=== PATIENT | female | born 1960 | race Caucasian/White ===

== ENCOUNTER 2018-07-11 10:36 | Emergency (ER) | payer BC, SELFPAY ==
[2018-07-11 10:37] VITALS: BP 174/83; PULSE 80; RESP 18; TEMP 36.6; O2SAT 97; BMI 34.3
[2018-07-11] MEDS: Ondansetron ODT 4 MG Tablet PO (10:56)
--- NOTE | 2018-07-11 11:00 | RAD_ITS ---
STUDY: X-RAY - LEFT TIBIA AND FIBULA REASON FOR EXAM: Female, 57 years old. Injury, pain TECHNIQUE: 2 view(s) of the tibia and fibula were obtained. COMPARISON: None. FINDINGS: There is suggestion of fracture deformity at the tip of the lateral malleolus which may be chronic in nature. There is no osseous destruction. The remainder of the tibia and fibula are intact. RAD/Tibia & Fibula 2 Views IMPRESSION: Fracture deformity at the tip of the lateral malleolus which may be chronic in nature Electronically Signed: Torrey Angeles MD at 12:10 EDT Tel , Service support ,
--- NOTE | 2018-07-11 12:52 | ED.VISSUMM ---
- ER Visit Summary Date of Service: 07/11/18 Chief Complaint: [Injury to left leg History of Present Illness: The patient is a 57 F [presents the emergency department complaint of injury to her left leg that occurred last evening around midnight. Patient states that she stepped on a rock unevenly and fell injuring her left leg. Patient denies striking her head or loss of consciousness. Patient had been drinking last night. She denies any chest pain or abdominal pain. She denies any back pain. Patient having a hard time bearing weight secondary to pain. Physical Examination: [HEENT-PERRLA, EOMI. Cranial nerves II through XII grossly intact. TMs clear. Mucous membranes moist. No adenopathy. No C-spine tenderness on palpation. Cardiovascular-regular rate and rhythm without murmur or ectopy Lungs-clear to auscultation, chest wall stable without crepitus or subcu emphysema Abdomen-normoactive bowel sounds, soft, nontender, no rebound or rigidity, no peritoneal signs. Extremities-intact ?4, normal range of motion, normal pulses.. Left leg-patient does have tenderness palpation over the proximal fibula and she does have some soft tissue swelling and abrasion over the area. No pain at the ankle. Normal range of motion flexion extension at the knee. Patient ligamentously stable. Test Results: [X-rays of the left tibia and fibula obtained initially been read by radiology as no acute fractures however after discussing my concerns with the radiologist that I felt patient did have a fracture noted on the lateral view of the proximal fibula the radiologist is in agreement that there is a fracture there.] Emergency Department Course and Treatment: [Patient was placed in a knee immobilizer and given [place] for pain. Patient states she has crutches at home and did not want them from the emergency department.] Treatment Plan: [Patient given knee immobilizer and [place] for pain and referral to orthopedics on-call.] Disposition: [Discharged home in stable condition] Impression: [Left proximal fibula fracture] This note was generated with [employer] dictation software. It may contain incorrect words, spelling, and punctuation that were not noted in review of the chart prior to signing ED Disposition - Plan for ED Patient: Chief Complaint: Lower Extremity Injury Referrals: Jaxson Das [Primary Care Provider] -
--- NOTE | 2018-07-11 12:55 | ED.DEP ---
ED Disposition - Plan for ED Patient: Chief Complaint: Lower Extremity Injury Instructions: ED Fx Lower Ext Prescriptions: Hydrocodone/Acetaminophen [[place] 5-325 Tablet] 1 ea PO 4X/DAY PRN PRN 5 Days #20 tab PRN Reason: Pain Referrals: Jaxson Das [Primary Care Provider] - Mamie Wolfe DO [STAFF PHYSICIAN] - 3-5 Days
[2018-07-11] MEDS: HYDROcodone Bitartrate/Apap 5/325 Tablet PO (13:05)
[2018-07-11] MEDS: Diphth,Pertuss(Acell),Tet Vac 0.5 ML Vial IM (13:06)
== END 2018-07-11 13:24 | disposition home or self-care (01) ==
LOC: ED 11:18
PROVIDERS: Emergency Provider Emergency Medicine; Family Provider Family Medicine; PCP Family Medicine
DX: S82.832A Other fracture of upper and lower end of left fibula, initial encounter for closed fracture (principal); W18.09XA Striking against other object with subsequent fall, initial encounter; Y93.9 Activity, unspecified; Y92.89 Other specified places as the place of occurrence of the external cause; Y99.9 Unspecified external cause status
CPT/HCPCS: 73590; 90715; 99283

== ENCOUNTER → 2018-07-31 13:21 | Outpatient (CLI) | payer BC, SELFPAY ==
--- NOTE | 2018-07-31 13:24 | RAD_ITS ---
STUDY: X-RAY - LEFT TIBIA AND FIBULA REASON FOR EXAM: Female, 57 years old. Follow-up injury. TECHNIQUE: 2 view(s) of the tibia and fibula were obtained. COMPARISON: 07/11/2018. FINDINGS: Fracture deformity of the lateral malleolus is unchanged. The remainder of the fibula is normal. Normal tibia. The soft tissue structures are unremarkable. RAD/Tibia & Fibula 2 Views IMPRESSION: 1. No interval change of the fracture deformity of the left lateral malleolus. In my opinion, dedicated radiographs of the left ankle are more helpful. 2. No suspicious new findings or interval changes when compared to 07/11/2018. Electronically Signed: Johnathan Allen MD at 13:37 EDT , Service support ,
== END ==
PROVIDERS: Family Provider Family Medicine; PCP Family Medicine; Visit Provider Physician Assistant
DX: S82.832D Other fracture of upper and lower end of left fibula, subsequent encounter for closed fracture with routine healing (principal)
CPT/HCPCS: 73590

== ENCOUNTER → 2020-03-30 12:20 | Outpatient (CLI) | payer BC, SELFPAY ==
--- NOTE | 2020-03-30 12:30 | RAD_ITS ---
STUDY: X-RAY - LEFT HUMERUS REASON FOR EXAM: Female, 59 years old. Pain TECHNIQUE: 2 view(s) of the humerus. COMPARISON: None. FINDINGS: There is no evidence of fracture or dislocation. There are no significant degenerative changes. There are no radiodense foreign bodies. RAD/Humerus min 2 Views IMPRESSION: No fracture or dislocation. Electronically Signed: Torrey Garcia, at 12:52 EDT Tel , Service support ,
== END ==
PROVIDERS: PCP Family Medicine; Referring Provider Family Medicine; Visit Provider Family Medicine
DX: M25.512 Pain in left shoulder (principal)
CPT/HCPCS: 73060

== ENCOUNTER 2021-11-28 14:21 | Outpatient (CLI) | payer MEDICARE, SELFPAY | END 2021-11-28 23:59 | disposition short-term general hospital (02) | PROVIDERS: PCP Family Medicine; Referring Provider Physician Assistant; Visit Provider Physician Assistant | DX: U07.1 COVID-19 (principal) | CPT/HCPCS: 87635; U0003; U0005 ==